=== PATIENT | female | born 1990 | race Caucasian/White ===

== ENCOUNTER 2018-02-20 19:15 | Emergency (ER) | payer OTHER ==
[~2018-02-20] VITALS: Ht 167.6 cm; Wt 90.7 kg
[2018-02-20] MEDS ORDERED: PREVACID15 MG (19:57)
[2018-02-20] MEDS ORDERED: IRON1TAB4 PO (23:29)
[2018-02-20] MEDS ORDERED: PEPCID AC20 MG PO (23:29)
== END 2018-02-20 23:52 | disposition home or self-care (01) ==
LOC: ER 19:15
DX: K29.70 Gastritis, unspecified, without bleeding (principal); R53.1 Weakness; D64.9 Anemia, unspecified